=== PATIENT | female | born 1935 | race Caucasian/White ===

== ENCOUNTER 2018-04-02 19:22 | Emergency (ER) | payer MEDICARE ==
[2018-04-02] MEDS ORDERED: Bisacodyl EC TAB* 5 MG PO ONE ×2 (19:23→20:18)
--- NOTE | 2018-04-02 19:57 | ED ---
Psychiatric Complaint - HPI Summary HPI Summary: Pt is a 83 year old female presenting to the ED from [facility] with the need for a psychiatric evaluation. The pt had severe anxiety and suicidal ideation, had a full workup at [place], and needs a psychiatric evaluation. - History Of Current Complaint Chief Complaint: EDMentalHealth Time Seen by Provider: 04/02/18 19:23 Hx Obtained From: Patient Onset/Duration: Lasting Hours Timing: Constant Severity Initially: Mild Severity Currently: Mild Character: Depressed, Anxious Has Suicidal: Reports: Thoughts, With A Plan - one involving a knife - Allergies/Home Medications Allergies/Adverse Reactions: Allergies Allergy/AdvReac Type Severity Reaction Status Date / Time No Known Allergies Allergy Verified 04/02/18 19:40 PMH/Surg Hx/FS Hx/Imm Hx Previously Healthy: No Cardiovascular History: Denies: Hx Hypertension Sensory History: Denies: Hx Deafness Psychiatric History: Reports: Hx Depression Infectious Disease History: No Infectious Disease History: Denies: Traveled Outside the [place] in Last 30 Days - Family History Known Family History: Positive: Unknown - Social History Alcohol Use: None Substance Use Type: Reports: None Smoking Status (MU): Never Smoked Tobacco Review of Systems Negative: Fever Positive: Depressed All Other Systems Reviewed And Are Negative: Yes Physical Exam - Summary Physical Exam Summary: Appearance: Well-appearing, Well-nourished, lying in bed comfortable, awake and alert Skin: Warm, dry, no obvious rash Eyes: sclera anicteric, no conjunctival pallor ENT: mucous membranes moist Neck: deferred Respiratory: No signs of respiratory distress Cardiovascular: Appears well perfused, pulses are nml Abdomen: deferred Musculoskeletal: Moving all 4 extremities without obvious discomfort Neurological: Awake and alert, mentation is normal, speech is fluent and appropriate Psychiatric: affect is normal, mildly depressed but pleasant and cooperative in conversation Vital Signs On Initial Exam: Initial Vitals Temp Pulse Resp BP Pulse Ox 98.5 F 75 18 109/67 98 04/02/18 19:36 04/02/18 19:36 04/02/18 19:36 04/02/18 19:36 04/02/18 19:36 Vital Signs Reviewed: Yes Diagnostics - Vital Signs Vital Signs Temp Pulse Resp BP Pulse Ox 04/02/18 19:36 98.5 F 75 18 109/67 98 - Laboratory Lab Statement: Any lab studies that have been ordered have been reviewed, and results considered in the medical decision making process. Course/Dx - Differential Dx/Clinical Impression Provider Diagnosis: Depression Discharge - Sign-Out/Discharge Documenting (check all that apply): Sign-Out Patient Signing out patient TO: Caleb Carias Receiving patient FROM: Issa Hale - Discharge Plan Condition: Good Disposition: HOME Patient Education Materials: Depression (ED) Referrals: Mo Alvarado MD [Primary Care Provider] - - Billing Disposition and Condition Condition: GOOD Disposition: Home - Attestation Statements Document Initiated by Scribe: Yes Documenting Scribe: Peggy Jones Provider For Whom Gio is Documenting (Include Credential): Issa Hale MD. Scribe Attestation: Peggy Reyes scribed for Issa Hale MD. on 04/06/18 at 2112. Scribe Documentation Reviewed: Yes Provider Attestation: The documentation as recorded by the scribePeggy accurately reflects the service I personally performed and the decisions made by , Issa Hale MD.
[2018-04-02] MEDS ORDERED: Oxymetazoline 0.05% NASAL SPR* 15 ML BTL BOTH NARES ONE (22:25)
--- NOTE | 2018-04-03 07:10 | ED ---
Course/Dx - Diagnoses Provider Diagnoses: Depression - Provider Notifications Discussed Care Of Patient With: Speedy Kimberly Time Discussed With Above Provider: 10:15 Instructed by Provider To: Other - Per RODERICK Pina, recommends discharge with dx depression unspecified. Discharge - Sign-Out/Discharge Documenting (check all that apply): Patient Departure - discharge - Discharge Plan Referrals: Mo Alvarado MD [Primary Care Provider] - - Attestation Statements Document Initiated by Scribe: Yes Documenting Scribe: Pj Almendarez Provider For Whom Scribe is Documenting (Include Credential): Dr. Caleb Carias MD Scribe Attestation: Pj Reyes, scribed for Dr. Caleb Carias MD on 04/03/18 at 1019.
[2018-04-03] MEDS ORDERED: PARoxetine HCL TAB* 40 MG PO ONE (09:57)
[2018-04-03] MEDS ORDERED: Furosemide TAB* 40 MG PO SCH (10:00)
[2018-04-03] MEDS ORDERED: Lisinopril TAB* 10 MG PO SCH (10:00)
[2018-04-03] MEDS ORDERED: PARoxetine HCL TAB* 10 MG PO SCH (11:00)
[2018-04-03] MEDS ORDERED: PARoxetine HCL TAB* 40 MG PO SCH (11:00)
[2018-04-03 11:10] VITALS: BP 0/0
[2018-04-03] MEDS ORDERED: carBAMazepine TAB(*) 200 MG PO SCH (12:00)
[2018-04-03] MEDS ORDERED: carBAMazepine TAB(*) 200 MG PO ONE ×3 (12:00→22:00)
== END 2018-04-03 11:07 | disposition home or self-care (01) ==
LOC: ED 19:22
DX: F32.9 Major depressive disorder, single episode, unspecified (principal); F41.9 Anxiety disorder, unspecified
CPT/HCPCS: 99284; A9270-GY